=== PATIENT | male | born 1985 | race African-American/Black ===

== ENCOUNTER 2021-07-16 20:31 | Emergency (ER) | payer SELFPAY ==
[~2021-07-16] VITALS: Ht 172.7 cm; Wt 98.4 kg
[2021-07-16] MEDS ORDERED: TETANUS/DIPHTHERIA TOX ADULT 0.5 ML SYR IM ONE (20:45)
[2021-07-16] MEDS ORDERED: CEPHALEXIN500 MG PO (21:04)
[2021-07-16] MEDS ORDERED: BACITRACIN ZINC 0.9GM TP ONE (21:20)
== END 2021-07-16 21:24 | disposition home or self-care (01) ==
LOC: ER 20:41
DX: S81.811A Laceration without foreign body, right lower leg, initial encounter (principal); W25.XXXA Contact with sharp glass, initial encounter; Y99.0 Civilian activity done for income or pay; F17.210 Nicotine dependence, cigarettes, uncomplicated
CPT/HCPCS: 90471; 90714; 99283